=== PATIENT | male | born 2000 ===

== ENCOUNTER 2021-11-24 01:32 | Emergency (ER) | payer SELFPAY ==
[2021-11-24 02:06] VITALS: BP 115/77
[2021-11-24 04:07] LABS: Bilirubin,Urine NEG (Negative); Blood,Urine SM (Negative); Color,Urine Yellow (Yellow); Mucus,Urine 1+ /HPF; Urobilinogen,Urine < 2.0 mg/dL (<2.0)
[2021-11-24 04:19] LABS: WBC,Urine > 182.0 /HPF (0.0-6.0)
== END 2021-11-24 09:05 | disposition left against medical advice (07) ==
LOC: ED 01:32
DX: N39.0 Urinary tract infection, site not specified (principal); Z53.21 Procedure and treatment not carried out due to patient leaving prior to being seen by health care provider
CPT/HCPCS: 81001